=== PATIENT | female | born 1980 | race Caucasian/White ===

== ENCOUNTER 2016-05-24 08:42 | Emergency (ER) | payer OTHER | END 2016-05-24 09:45 | disposition home or self-care (01) | LOC: ER1 08:42 | DX: M54.5 Low back pain (principal); Z88.5 Allergy status to narcotic agent; Z79.899 Other long term (current) drug therapy | CPT/HCPCS: 99283 ==

== ENCOUNTER → 2016-06-17 | Outpatient (CLI) | payer OTHER | LOC: NM 09:27 | DX: R10.811 Right upper quadrant abdominal tenderness (principal); R93.2 Abnormal findings on diagnostic imaging of liver and biliary tract | CPT/HCPCS: 78227; A9537; J2805 ==

== ENCOUNTER → 2016-11-04 | Outpatient (CLI) | payer OTHER | LOC: RAD 12:47 | DX: M54.6 Pain in thoracic spine (principal) | CPT/HCPCS: 72072 ==

== ENCOUNTER → 2020-03-01 | Outpatient (CLI) | payer OTHER ==
[~2020-03-01] MED LIST: AUGMENTIN 875-1 EACH PO; MACROBID 100 M100 MG PO; MEDROL DOSEPAK 24 MG PO; SUDAFED 60 MG T60 MG PO; TORADOL 10 MG T10 MG PO; ZOFRAN ODT 4 MG4 MG PO
== END ==
LOC: MRI 02-27 09:30
DX: R51.9 Headache, unspecified (principal)
CPT/HCPCS: 70553; A9577

== ENCOUNTER 2020-08-31 13:55 | Emergency (ER) | payer OTHER | END 2020-08-31 16:00 | disposition left against medical advice (07) | LOC: ER1 13:55 | DX: Z53.21 Procedure and treatment not carried out due to patient leaving prior to being seen by health care provider (principal) ==

== ENCOUNTER → 2020-09-06 | Outpatient (CLI) | payer OTHER | LOC: EXRD 08:51 | DX: R10.11 Right upper quadrant pain (principal); K76.0 Fatty (change of) liver, not elsewhere classified | CPT/HCPCS: 76705 ==

== ENCOUNTER 2020-09-11 10:32 | Emergency (ER) | payer OTHER ==
[2020-09-11 11:28] LABS: HEMOGLOBIN 14.1 gm/dl (12.3-15.3); RED BLOOD COUNT 4.63 M/UL (4.00-5.10); WHITE BLOOD COUNT 9.3 K/UL (4.5-11.0)
[2020-09-11 11:49] LABS: BUN/CREATININE RATIO 15 (0-10)
== END 2020-09-11 13:48 | disposition home or self-care (01) ==
LOC: ER1 10:32
PROVIDERS: Physician Assistant
DX: R07.81 Pleurodynia (principal); I10 Essential (primary) hypertension; Z90.49 Acquired absence of other specified parts of digestive tract; Z88.5 Allergy status to narcotic agent
CPT/HCPCS: 71045; 80053; 82550; 82553; 83874; 84484; 85025; 85379; 93005; 99285

== ENCOUNTER → 2020-11-30 | Outpatient (CLI) | payer BC, OTHER | LOC: NM 12:23 | DX: R11.0 Nausea (principal); R93.3 Abnormal findings on diagnostic imaging of other parts of digestive tract | CPT/HCPCS: 78264; A9541 ==

== ENCOUNTER 2021-02-14 08:52 | Emergency (ER) | payer BC, OTHER ==
[2021-02-14 09:32] LABS: HEMOGLOBIN 13.1 gm/dl (12.3-15.3); RED BLOOD COUNT 4.39 M/UL (4.00-5.10)
[2021-02-14 09:51] LABS: BUN/CREATININE RATIO 17 (0-10)
== END 2021-02-14 13:00 | disposition home or self-care (01) ==
LOC: ER1 08:52
PROVIDERS: Nurse Practitioner
DX: R07.89 Other chest pain (principal); I10 Essential (primary) hypertension; E78.5 Hyperlipidemia, unspecified; Z90.49 Acquired absence of other specified parts of digestive tract; Z88.5 Allergy status to narcotic agent
CPT/HCPCS: 71045; 80048; 81001; 82550; 82553; 84484; 85025; 93005; 96374; 96375; 99285; J1885; J2405

== ENCOUNTER 2021-03-08 05:09 | Emergency (ER) | payer BC, OTHER ==
[2021-03-08 05:43] LABS: HEMOGLOBIN 14.9 gm/dl (12.3-15.3); RED BLOOD COUNT 4.97 M/UL (4.00-5.10); WHITE BLOOD COUNT 12.5 K/UL (4.5-11.0)
[2021-03-08 06:05] LABS: BUN/CREATININE RATIO 22 (0-10)
== END 2021-03-08 06:48 | disposition home or self-care (01) ==
LOC: ER1 05:09
PROVIDERS: Emergency Medicine
DX: R07.89 Other chest pain (principal); I10 Essential (primary) hypertension; R51.9 Headache, unspecified; Z20.822 Contact with and (suspected) exposure to COVID-19
CPT/HCPCS: 0240U; 71045; 80048; 81001; 82550; 82553; 83735; 83874; 84484; 84703; 85025; 85379; 93005; 96374; 96375; 99285; J1885; J2405

== ENCOUNTER → 2021-06-03 | Outpatient (CLI) | payer OTHER | LOC: KOH-I 14:54 | DX: R05.1 Acute cough (principal); R07.89 Other chest pain | CPT/HCPCS: 71046 ==

== ENCOUNTER 2021-08-15 15:46 | Emergency (ER) | payer OTHER ==
[2021-08-15 16:26] LABS: HEMOGLOBIN 13.7 gm/dl (12.3-15.3); RED BLOOD COUNT 4.67 M/UL (4.00-5.10); WHITE BLOOD COUNT 9.9 K/UL (4.5-11.0)
[2021-08-15 16:47] LABS: BUN/CREATININE RATIO 13 (0-10)
[2021-08-15] MEDS ORDERED: CLONIDINE HCL0.1 MG PO (19:30)
== END 2021-08-15 19:43 | disposition home or self-care (01) ==
LOC: ER1 15:46
PROVIDERS: Preventive Medicine Occupational Medicine
DX: R07.89 Other chest pain (principal); I10 Essential (primary) hypertension
CPT/HCPCS: 71045; 80053; 81001; 82550; 82553; 83690; 83880; 84484; 85025; 85379; 85652; 86140; 87086; 93005; 96374; 96376; 99285; J2060